=== PATIENT | female | born 2000 | race Caucasian/White ===

== ENCOUNTER 2021-01-10 13:00 | Outpatient (CLI) | payer OTHER ==
[~2021-01-10 13:00] MED LIST: COLACE 100MG C100 MG PO; FEOSOL325 MG PO; FLAGYL500 MG PO; IBUPROFEN600 MG PO; LORTAB 5-325 M1 EACH PO; NO HOME MEDS; TYLENOL 500 MG500 MG PO; VALACYCLOVIR1000 MG PO
== END 2021-01-10 14:37 | disposition home or self-care (01) ==
LOC: GENOP 13:00
DX: O99.893 Other specified diseases and conditions complicating puerperium (principal); R10.9 Unspecified abdominal pain; Z3A.35 35 weeks gestation of pregnancy
CPT/HCPCS: 81001; 82731; G0463

== ENCOUNTER → 2021-01-15 | Outpatient (CLI) | payer OTHER ==
[~2021-01-15] VITALS: Ht 162.6 cm; Wt 93.0 kg
[~2021-01-15] MED LIST changes: +DOCUSATE SODIU100 MG PO; +HYDROCODON-ACE1 EAC4 PO
== END ==
LOC: OPSV 06:58
DX: O99.019 Anemia complicating pregnancy, unspecified trimester (principal)
CPT/HCPCS: 96365; J1756

== ENCOUNTER → 2021-02-12 | Outpatient (CLI) | payer OTHER ==
[~2021-02-12] VITALS: Ht 162.6 cm; Wt 93.0 kg
[2021-02-12 12:45] LABS: HEMOGLOBIN 8.2 gm/dl (12.3-15.3); RED BLOOD COUNT 4.41 M/UL (4.00-5.10); WHITE BLOOD COUNT 10.7 K/UL (4.5-11.0)
== END ==
LOC: OPSV 09:00 → GENOP 09:21
PROVIDERS: Obstetrics & Gynecology
DX: Z53.8 Procedure and treatment not carried out for other reasons (principal)
CPT/HCPCS: 36415; 81001; 85025; 96365; J1756

== ENCOUNTER 2021-02-15 04:59 | Inpatient (IN) | payer OTHER ==
[~2021-02-15] VITALS: Ht 162.6 cm; Wt 95.3 kg
[~2021-02-15 04:59] MED LIST changes: -DOCUSATE SODIU100 MG PO; -HYDROCODON-ACE1 EAC4 PO
[2021-02-15] MEDS ORDERED: DOCUSATE SODIU100 MG PO (08:02)
[2021-02-15] MEDS ORDERED: HYDROCODON-ACE1 EAC4 PO (08:02)
[2021-02-15] MEDS ORDERED: IBUPROFEN600 MG PO (08:02)
[2021-02-16 03:29] LABS: HEMOGLOBIN 6.7 gm/dl (12.3-15.3)
== END 2021-02-16 15:33 | disposition home or self-care (01) | DRG 787 ==
LOC: OB 04:59
PROVIDERS: ADMIT Obstetrics & Gynecology
PROC: 10D00Z1 Extraction of Products of Conception, Low, Open Approach (ICD-10-PCS; principal; 2021-02-15 09:00)
DX: O34.211 Maternal care for low transverse scar from previous cesarean delivery (principal); O98.52 Other viral diseases complicating childbirth; N85.8 Other specified noninflammatory disorders of uterus; O99.02 Anemia complicating childbirth; B00.9 Herpesviral infection, unspecified; Z3A.39 39 weeks gestation of pregnancy; Z37.0 Single live birth; O99.353 Diseases of the nervous system complicating pregnancy, third trimester; G43.909 Migraine, unspecified, not intractable, without status migrainosus; Z88.0 Allergy status to penicillin; D50.9 Iron deficiency anemia, unspecified; O77.0 Labor and delivery complicated by meconium in amniotic fluid
CPT/HCPCS: 36415; 81001; 82800; 85014; 85018; 85025; 86850; 86900; 86901; 86920; 96365; C9113; J1580; J1756; J1885; J2274; J2370; J2405; J2590; J3010; J7120; U0003

== ENCOUNTER 2022-07-15 22:35 | Outpatient (CLI) | payer OTHER ==
[~2022-07-15 22:35] MED LIST changes: +DOCUSATE SODIU100 MG PO; +HYDROCODON-ACE1 EAC4 PO
== END 2022-07-15 23:40 | disposition home or self-care (01) ==
LOC: GENOP 22:35
DX: O99.891 Other specified diseases and conditions complicating pregnancy (principal); R10.33 Periumbilical pain; Z68.32 Body mass index [BMI] 32.0-32.9, adult